=== PATIENT | female | born 1980 | race Caucasian/White ===

== ENCOUNTER 2023-09-15 09:09 | Emergency (ER) | payer MEDICAID ==
[~2023-09-15] VITALS: Ht 157.5 cm; Wt 73.0 kg
[2023-09-15 09:41] LABS: DIFFERENTIAL COMMENT 0; EOSINOPHILS % 10.6 % (0.0-5.0); HEMATOCRIT. 33.2 % (36.0-48.0); HEMOGLOBIN. 10.3 g/dL (12.0-16.0); MEAN CORPUSCULAR HEMOGLOBIN 23.9 pg (28.0-32.0); MEAN CORPUSCULAR HGB CONC 30.9 g/dL (31.0-37.0); MEAN CORPUSCULAR VOLUME 77.3 fL (81.0-99.0); MEAN PLATELET VOLUME 9.5 fl (7.4-10.4); MONOCYTES % 4.8 % (2.0-8.0); NEUTROPHILS % 48.6 % (40.0-76.0); PLATELET 234 x1000/uL (130-400); RED CELL DISTRIBUTION WIDTH 17.1 % (11.6-14.6)
[2023-09-15 09:48] LABS: CHLORIDE 107 mEq/L (98-107); POTASSIUM 4.1 mEq/L (3.5-5.1); SODIUM 138 mEq/L (136-145)
[2023-09-15 09:49] LABS: CALCIUM 9.2 mg/dL (8.7-10.4); CARBON DIOXIDE 24 mEq/L (21-32)
[2023-09-15 09:54] LABS: CREATININE 0.7 mg/dL (0.6-1.0); GLUCOSE 115 mg/dL (70-105); HCG SCREEN NEGATIVE; UREA NITROGEN BLOOD 8 mg/dL (9-23)
[2023-09-15] MEDS: PREDNISONE 20MG TABLET PO STA (09:54)
[2023-09-15 09:58] VITALS: PULSE 69; RESP 24; O2SAT 96
[2023-09-15] MEDS: ALBUTEROL (0.083%) 2.5MG/3ML NEB HHN STA (09:58)
[2023-09-15] MEDS: IPRATROPIUM BROMIDE (0.02%) 0.5MG/2.5ML NEB HHN STA (09:58)
[2023-09-15] MEDS: ALBUTEROL (0.083%) 2.5MG/3ML NEB HHN SCH (10:12)
[2023-09-15 10:13] LABS: TROPONIN I HIGH SENSITIVITY < 4 ng/L (3.0-34)
[2023-09-15 10:28] VITALS: PULSE 81; RESP 20; O2SAT 100
[2023-09-15 10:44] VITALS: PULSE 85; RESP 20; O2SAT 100
[2023-09-15 10:59] VITALS: PULSE 95; RESP 22; O2SAT 100
[2023-09-15] MEDS: IBUPROFEN 600MG TABLET PO ONE (11:14)
[2023-09-15] MEDS: METHOCARBAMOL 500MG TABLET PO ONE (11:14)
[2023-09-15] MEDS ORDERED: ALBUTEROL (0.083%) 2.5MG/3ML NEB HHN ONE (12:30)
[2023-09-15 13:18] LABS: TROPONIN I HIGH SENSITIVITY < 4 ng/L (3.0-34)
[2023-09-15] MEDS ORDERED: P50 MT (13:22)
[2023-09-15] MEDS ORDERED: ALBU6.7H15 INH (13:22)
[2023-09-15 13:45] VITALS: BP 122/71; PULSE 91; RESP 16; TEMP 97.9
[2023-09-15] MEDS: MECLIZINE 25MG TABLET PO ONE (13:45)
== END 2023-09-15 13:55 | disposition home or self-care (01) ==
LOC: ER 09:09
DX: J45.901 Unspecified asthma with (acute) exacerbation (principal); E78.00 Pure hypercholesterolemia, unspecified; Z98.890 Other specified postprocedural states; Z20.822 Contact with and (suspected) exposure to COVID-19
CPT/HCPCS: 80048; 84703; 83880; 85025; 84484; 36415; 71045; 94640; 93005; 99285; 87426; J8597; J7512; Z7610 ×3

== ENCOUNTER 2023-11-21 09:00 | Emergency (ER) | payer MEDICAID ==
[~2023-11-21] VITALS: Ht 157.5 cm; Wt 68.0 kg
[~2023-11-21 09:00] MED LIST: ALBU6.7H15 INH; P50 MT
[2023-11-21 09:21] VITALS: BP 106/57; PULSE 91; RESP 20; TEMP 98.6; O2SAT 100
[2023-11-21] MEDS ORDERED: IPRATROPIUM/ALBUTEROL 0.5-3(2.5)MG/3ML NEB HHN ONE (09:30)
[2023-11-21 09:47] LABS: CHLORIDE 107 mEq/L (98-107); POTASSIUM 3.1 mEq/L (3.5-5.1); SODIUM 139 mEq/L (136-145)
[2023-11-21 09:48] LABS: CALCIUM 9.1 mg/dL (8.7-10.4); CARBON DIOXIDE 24 mEq/L (21-32)
[2023-11-21 09:53] LABS: CREATININE 0.8 mg/dL (0.6-1.0); GLUCOSE 171 mg/dL (70-105); UREA NITROGEN BLOOD 10 mg/dL (9-23)
[2023-11-21 09:56] LABS: TROPONIN I HIGH SENSITIVITY < 4 ng/L (3.0-34)
[2023-11-21 10:00] LABS: BASOPHILS % 0.9 % (0.0-2.0); DIFFERENTIAL COMMENT 0; EOSINOPHILS % 9.8 % (0.0-5.0); HEMATOCRIT. 31.5 % (36.0-48.0); HEMOGLOBIN. 9.7 g/dL (12.0-16.0); LYMPHOCYTES % 32.3 % (20.0-50.0); MEAN CORPUSCULAR HEMOGLOBIN 23.4 pg (28.0-32.0); MEAN CORPUSCULAR HGB CONC 30.7 g/dL (31.0-37.0); MEAN CORPUSCULAR VOLUME 76.2 fL (81.0-99.0); MEAN PLATELET VOLUME 9.4 fl (7.4-10.4); MONOCYTES % 5.4 % (2.0-8.0); NEUTROPHILS % 51.6 % (40.0-76.0); PLATELET 214 x1000/uL (130-400); RED BLOOD CELL COUNT 4.13 mill/uL (4.2-5.4); RED CELL DISTRIBUTION WIDTH 18.4 % (11.6-14.6)
[2023-11-21] MEDS ORDERED: ALBU18HF2 IH (14:21)
[2023-11-21] MEDS ORDERED: P50 MT (14:21)
== END 2023-11-21 15:06 | disposition home or self-care (01) ==
LOC: ER 09:12
DX: J45.21 Mild intermittent asthma with (acute) exacerbation (principal); E78.00 Pure hypercholesterolemia, unspecified; Z98.890 Other specified postprocedural states
CPT/HCPCS: 36415; 71045; 80048; 84484; 85025; 99284

== ENCOUNTER 2024-04-26 11:23 | Emergency (ER) | payer MEDICAID ==
[~2024-04-26] VITALS: Ht 172.7 cm; Wt 69.0 kg
[~2024-04-26 11:23] MED LIST changes: +ALBU18HF2 IH
[2024-04-26 11:38] VITALS: O2SAT 100
[2024-04-26 12:18] LABS: BASOPHILS % 0.8 % (0.0-2.0); EOSINOPHILS % 7.5 % (0.0-5.0); HEMOGLOBIN. 12.8 g/dL (12.0-16.0); LYMPHOCYTES % 35.4 % (20.0-50.0); MEAN CORPUSCULAR HEMOGLOBIN 28.6 pg (28.0-32.0); MEAN CORPUSCULAR HGB CONC 32.7 g/dL (31.0-37.0); MEAN CORPUSCULAR VOLUME 87.2 fL (81.0-99.0); MEAN PLATELET VOLUME 10.1 fl (7.4-10.4); MONOCYTES % 6.3 % (2.0-8.0); PLATELET 204 x1000/uL (130-400); RED BLOOD CELL COUNT 4.47 mill/uL (4.2-5.4); RED CELL DISTRIBUTION WIDTH 18.7 % (11.6-14.6); WHITE BLOOD COUNT 5.9 x1000/uL (4.5-11.0)
[2024-04-26 12:24] LABS: CHLORIDE 104 mEq/L (98-107); POTASSIUM 3.7 mEq/L (3.5-5.1); SODIUM 139 mEq/L (136-145)
[2024-04-26 12:25] LABS: CALCIUM 9.3 mg/dL (8.7-10.4); CARBON DIOXIDE 27 mEq/L (21-32)
[2024-04-26 12:30] LABS: CREATININE 0.6 mg/dL (0.6-1.0); GLUCOSE 95 mg/dL (70-105); UREA NITROGEN BLOOD 9 mg/dL (9-23)
[2024-04-26 12:32] LABS: ALANINE AMINOTRANSFERASE 11 IU/L (10-49); ALBUMIN 4.3 g/dL (3.2-4.8); ASPARTATE AMINOTRANSFERASE 12 IU/L (<34); BILIRUBIN TOTAL 0.4 mg/dL (0.1-1.0); PROTEIN TOTAL 7.2 g/dL (6.0-8.3)
[2024-04-26 12:34] LABS: BILIRUBIN DIRECT < 0.1 mg/dL (<=3.0)
[2024-04-26 12:35] LABS: CLARITY URINE CLEAR (CLEAR); COLOR URINE YELLOW (YELLOW); GLUCOSE URINE NEGATIVE (NEGATIVE); KETONES URINE NEGATIVE (NEGATIVE); LEUKOCYTE ESTERASE URINE NEGATIVE (NEGATIVE); NITRITE URINE NEGATIVE (NEGATIVE); OCCULT BLOOD URINE NEGATIVE (NEGATIVE); PROTEIN URINE NEGATIVE (NEGATIVE); SPECIFIC GRAVITY URINE 1.008 (1.005-1.030); UROBILINOGEN URINE 0.2 E.U./dL (0.2-1.0)
[2024-04-26 14:41] VITALS: BP 116/61; PULSE 62; RESP 18; TEMP 37.2; O2SAT 100
== END 2024-04-26 14:41 | disposition home or self-care (01) ==
LOC: ER 11:23
DX: N93.9 Abnormal uterine and vaginal bleeding, unspecified (principal); J45.909 Unspecified asthma, uncomplicated; E78.00 Pure hypercholesterolemia, unspecified; Z98.890 Other specified postprocedural states
CPT/HCPCS: 36415; 76830; 76856; 80048; 80076; 81003; 81025; 85025; 86850; 86900; 99284

== ENCOUNTER 2024-11-27 19:26 | Emergency (ER) | payer MEDICAID ==
[~2024-11-27] VITALS: Ht 162.6 cm; Wt 79.0 kg
[2024-11-27 20:09] LABS: BASOPHILS % 0.7 % (0.0-2.0); EOSINOPHILS % 3.6 % (0.0-5.0); HEMATOCRIT. 33.7 % (36.0-48.0); HEMOGLOBIN. 10.9 g/dL (12.0-16.0); LYMPHOCYTES % 32.6 % (20.0-50.0); MEAN PLATELET VOLUME 10.1 fl (7.4-10.4); MONOCYTES % 5.5 % (2.0-8.0); NEUTROPHILS % 57.6 % (40.0-76.0); PLATELET 254 x1000/uL (130-400); RED BLOOD CELL COUNT 4.04 mill/uL (4.2-5.4); RED CELL DISTRIBUTION WIDTH 14.8 % (11.6-14.6)
[2024-11-27 20:23] LABS: CREATININE 0.8 mg/dL (0.6-1.0); UREA NITROGEN BLOOD 10 mg/dL (9-23)
[2024-11-27 20:24] LABS: TROPONIN I HIGH SENSITIVITY < 4 ng/L (3.0-34)
[2024-11-27 21:42] VITALS: PULSE 72; RESP 22; O2SAT 98
[2024-11-27] MEDS: ALBUTEROL (0.5%) 2.5MG/0.5ML NEB HHN NR (21:42)
[2024-11-27] MEDS ORDERED: ALBU90AE INH (22:24)
[2024-11-27 22:35] VITALS: BP 112/66; PULSE 68; RESP 20; TEMP 36.9; O2SAT 98
== END 2024-11-27 22:36 | disposition home or self-care (01) ==
LOC: ER 19:26
DX: J98.01 Acute bronchospasm (principal); D64.9 Anemia, unspecified; Z87.891 Personal history of nicotine dependence; E78.5 Hyperlipidemia, unspecified; R06.2 Wheezing
CPT/HCPCS: 80048; 85025; 85379; 84484; 36415; 71045; 94640; 93005; 98960; 99285; Z7610 ×3; 94070; 94664